=== PATIENT | female | born 1970 | race Two or more races ===

== ENCOUNTER 2018-08-14 09:36 | Outpatient (CLI) | payer OTHER | END 2018-08-14 15:22 | disposition home or self-care (01) | LOC: MAMO-SONO 09:36 | DX: Z12.31 Encounter for screening mammogram for malignant neoplasm of breast (principal) ==

== ENCOUNTER 2018-10-01 10:09 | Outpatient (CLI) | payer OTHER | END 2018-10-01 10:25 | disposition home or self-care (01) | LOC: RAD 501 10:09 | DX: Z01.811 Encounter for preprocedural respiratory examination (principal) ==

== ENCOUNTER 2019-09-10 09:09 | Outpatient (CLI) | payer OTHER | END 2019-09-10 09:14 | disposition home or self-care (01) | LOC: MAMO-SONO 09:09 | DX: Z12.31 Encounter for screening mammogram for malignant neoplasm of breast (principal); Z87.898 Personal history of other specified conditions; N60.11 Diffuse cystic mastopathy of right breast; N60.12 Diffuse cystic mastopathy of left breast; M76.821 Posterior tibial tendinitis, right leg ==

== ENCOUNTER 2021-08-09 08:00 | Outpatient (CLI) | payer OTHER | END 2021-08-09 08:30 | disposition home or self-care (01) | LOC: PPH VACUNA 08:00 | PROVIDERS: ATTEND Emergency Medicine Pediatric Emergency Medicine | DX: Z23 Encounter for immunization (principal) ==

== ENCOUNTER 2021-08-23 11:55 | Outpatient (CLI) | payer OTHER | END 2021-08-23 12:14 | disposition home or self-care (01) | LOC: MAMO-SONO 11:55 | PROVIDERS: ATTEND Internal Medicine Endocrinology, Diabetes & Metabolism | DX: R92.1 Mammographic calcification found on diagnostic imaging of breast (principal); Z12.31 Encounter for screening mammogram for malignant neoplasm of breast; N64.4 Mastodynia ==

== ENCOUNTER 2022-04-05 11:01 | Outpatient (CLI) | payer OTHER | END 2022-04-05 11:10 | disposition home or self-care (01) | LOC: PPH VACUNA 11:01 | PROVIDERS: ATTEND Emergency Medicine Pediatric Emergency Medicine | DX: Z23 Encounter for immunization (principal) ==

== ENCOUNTER 2023-01-11 07:31 | Outpatient (CLI) | payer OTHER | END 2023-01-14 13:46 | disposition home or self-care (01) | LOC: PPH VACUNA 07:31 | PROVIDERS: ATTEND Emergency Medicine Pediatric Emergency Medicine | DX: Z23 Encounter for immunization (principal) ==